=== PATIENT | male | born 1950 | race Caucasian/White ===

== ENCOUNTER 2018-05-02 23:51 | Emergency (ER) | payer SELFPAY ==
[~2018-05-02] VITALS: Ht 172.7 cm; Wt 85.4 kg
--- NOTE | 2018-05-03 00:30 | NUR ---
PT BIBFAMILY C/O LLQ ABD PAIN X 5 HOURS. DENIES N/V, PATIENT STATES HAS HAD SOME DIARRHEA LAST COUPLE DAYS. PT AOX4. NAD NOTED. RESP EVEN AND UNLABORED. FAMILY AT BEDSIDE. PT ON MONITOR IN BED 16. WILL CONTINUE TO MONITOR.
[2018-05-03] MEDS ORDERED: HYDROCODONE/APAP 5/325MG 1 EACH TABLET PO ONE (01:00)
[2018-05-03 01:06] LABS: HEMOGLOBIN 15.8 g/dL (13.5-17.5); LYMPHOCYTES # (AUTO) 0.8 /CMM (0.8-4.8)
[2018-05-03 01:07] LABS: APPEARANCE,URINE CLEAR (CLEAR); BILIRUBIN,URINE NEGATIVE (NEGATIVE); BLOOD, URINE NEGATIVE Ery/uL (NEGATIVE); KETONES,URINE NEGATIVE (NEGATIVE); LEUKOCYTE ESTERASE ,URINE NEGATIVE (NEGATIVE); NITRITE, URINE NEGATIVE (NEGATIVE); PH,URINE 6.5 (5.0-8.0); PROTEIN,URINE NEGATIVE (NEGATIVE); UGLUCOSE NEGATIVE (NEGATIVE); UROBILINOGEN,URINE 0.2 EU/dL (0.2)
[2018-05-03 01:12] LABS: BASOPHILS % (AUTO) 0.6 % (0.0-2.0); COLOR,URINE STRAW (YELLOW); EOSINOPHILS % (AUTO) 4.1 % (0.0-6.0); HEMATOCRIT 43 % (39-51); LYMPHOCYTES % (AUTO) 11.4 % (20.0-44.0); MEAN CORPUSCULAR HGB CONC 36 g/dl (31.0-36.0); MEAN CORPUSCULAR VOLUME 91 fL (80-96); MONOCYTES # (AUTO) 0.6 /CMM (0.1-1.30); MONOCYTES % (AUTO) 8.1 % (2.0-12.0); NEUTROPHILS # (AUTO) 5.2 /CMM (1.8-8.9); NEUTROPHILS % (AUTO) 75.8 % (43.0-81.0); PLATELET COUNT (AUTO) 137 /CMM (150-450); RED BLOOD CELL COUNT(AUTO) 4.77 MIL/uL (4.5-6.0); WHITE BLOOD COUNT (AUTO) 6.9 K/uL (4.3-11.0)
[2018-05-03 01:17] LABS: CALCIUM, SERUM 8.8 mg/dL (8.5-10.1); CREATININE 1.3 mg/dL (0.6-1.3); POTASSIUM 4.2 mmol/L (3.5-5.1)
[2018-05-03] MEDS ORDERED: HYDROCODONE/APAP 5/325MG 1 EACH TABLET ONE (01:51)
--- NOTE | 2018-05-03 01:51 | NUR ---
PT RETURNED FROM RADIOLOGY FOR CT. PT TOLERATED WELL.
[2018-05-03 02:31] VITALS: BP 163/82
--- NOTE | 2018-05-03 03:23 | NUR ---
Patient discharged to home in stable condition. Written and verbal after care instructions given. Patient verbalizes understanding of instruction. PT AMBULATORY WITH STEADY GAIT.
== END 2018-05-03 03:25 | disposition home or self-care (01) ==
LOC: ER 23:56
DX: K59.00 Constipation, unspecified (principal); K76.89 Other specified diseases of liver; N43.3 Hydrocele, unspecified; R10.32 Left lower quadrant pain; I10 Essential (primary) hypertension; I25.2 Old myocardial infarction; Z95.818 Presence of other cardiac implants and grafts; Z95.0 Presence of cardiac pacemaker; Z98.890 Other specified postprocedural states
CPT/HCPCS: 36415; 74176; 80048; 81001; 85025; 87086; 99284; A4606; 81000-TC